=== PATIENT | female | born 1975 | race Caucasian/White ===

== ENCOUNTER → 2017-12-15 | Day surgery (SDC) | payer OTHER ==
[~2017-12-15] MED LIST: ALLEGRA ALLERG180 MG PO; BUPIVACAINE HCL 0.5% INJ 30 ML VIAL INJ ONE; CEFAZOLIN SOD 2 GM/D5W 50ML 50 ML IV ONE; DEXAMETHASONE SOD PHOS INJ 4 MG/ML VIAL ONE; FENTANYL CITRATE/PF 100MCG/2 ML INJ ONE; KETOROLAC TROMETHAMINE 30 MG/ML VIAL ONE; LIDOCAINE HCL 2% LOCAL INJ 5 ML SDV VIAL INJ ONE; MIDAZOLAM HCL 2 MG/2 ML VIAL ONE; MULTI-VITAMIN1 EACH PO; ONDANSETRON HCL INJ 2 MG/ML VIAL ONE; PROPOFOL IV EMULSION 10 MG/ML 20 ML VIAL ONE; SEVOFLURANE INHAL SOLN 250 ML PEN BTL ONE; SYNTHROID125 MCG PO
[2017-12-15 10:20] VITALS: BP 117/70
--- NOTE | 2017-12-16 17:23 | Operative Report ---
DATE OF PROCEDURE: December 15, 2017 PREOPERATIVE DIAGNOSIS: Right knee medial and lateral meniscus tears. POSTOPERATIVE DIAGNOSES 1. Right knee lateral meniscus tear. 2. Right knee degenerative joint disease of the knee. PROCEDURES PERFORMED: 1. Right knee examination under anesthesia. 2. Right knee arthroscopy. 3. Right knee partial lateral meniscectomy. 4. Right knee chondroplasty of the patella, the trochlea, the medial femoral condyle, the medial tibial plateau, lateral femoral condyle and lateral tibial plateau. JOINERY PATTERNMAKER: Jennifer Khan ANESTHESIA: General endotracheal intubation. IV FLUIDS: Per the anesthesia record. BRIEF DESCRIPTION OF THE PATIENT'S OPERATIVE PROCEDURE: Ms. Reddy was taken to the operating room and placed in supine position on operating table. Following induction of general anesthesia as well as endotracheal intubation, the patient's right lower extremity was examined under anesthesia. She was found to have a mild effusion within the knee joint but otherwise ligamentously stable knee. The patient's lower extremity was prepped and draped in standard surgical fashion. A 2 portal technique was used to provide this patient arthroscopic evaluation of the knee joint. Examination of the suprapatellar pouch, medial and lateral gutters found no evidence of loose bodies. The scope was advanced in the medial compartment and examination of the medial compartment demonstrated chondromalacia of articulating surfaces. The medial meniscus was thoroughly examined and there were some mild fraying but no tearing region of the articular surface or subarticular surface of the meniscus. A shaver was placed in the medial compartment and chondroplasties of the medial femoral condyle and medial tibial plateau were performed at this time. The scope was then advanced to the intercondylar notch and the anterior cruciate ligament was identified and found to be intact. Scope was advanced into the lateral compartment and there was chondromalacia of articulating surfaces. There was also a torn lateral meniscus. Chondroplasties of the lateral femoral condyle and lateral tibial plateau were performed. A combination of biting forceps and motorized shaver were used to resect the torn portion of the meniscus. The scope was then placed in suprapatellar pouch and chondroplasties of patella and trochlea were performed. The knee was deflated of its sterile normal saline. Each of the portal sites were closed using 4- nylon suture. Portal sites as well as the knee itself were injected with half percent Marcaine with epinephrine. Sterile dressings were applied. The patient was awakened and taken to postanesthesia care unit in stable condition. Job#: [id number]
== END | disposition home or self-care (01) ==
LOC: OR 06:56
PROVIDERS: ATTEND Specialist
DX: S83.261A Peripheral tear of lateral meniscus, current injury, right knee, initial encounter (principal); S83.221A Peripheral tear of medial meniscus, current injury, right knee, initial encounter; M17.11 Unilateral primary osteoarthritis, right knee; M22.41 Chondromalacia patellae, right knee; J30.2 Other seasonal allergic rhinitis; E03.9 Hypothyroidism, unspecified; M54.2 Cervicalgia; X58.XXXA Exposure to other specified factors, initial encounter; Z68.41 Body mass index [BMI] 40.0-44.9, adult
CPT/HCPCS: 29881; 81025; J1100; J1885; J2001; J2250; J2405; J0690